=== PATIENT | female | born 1960 | race Caucasian/White ===

== ENCOUNTER 2017-12-15 05:58 | Emergency (ER) | payer SELFPAY ==
[~2017-12-15] VITALS: Ht 157.5 cm; Wt 120.0 kg
[2017-12-15] MEDS ORDERED: LISINOPRIL10 MG PO (06:45)
[2017-12-15] MEDS ORDERED: GABAPENTIN100 MG PO (06:45)
[2017-12-15] MEDS ORDERED: LEVOTHYROXIN50 MCG PO (06:46)
[2017-12-15] MEDS ORDERED: MOTRIN400 MG PO (06:47)
[2017-12-15 06:48] VITALS: BP 141/71
[2017-12-15] MEDS ORDERED: IBUPROFEN600 MG PO (06:56)
== END 2017-12-15 07:06 | disposition home or self-care (01) | DRG 605 ==
LOC: ED 05:58
DX: S40.012A Contusion of left shoulder, initial encounter (principal); M19.90 Unspecified osteoarthritis, unspecified site; F17.210 Nicotine dependence, cigarettes, uncomplicated; V53.6XXA Passenger in pick-up truck or van injured in collision with car, pick-up truck or van in traffic accident, initial encounter

== ENCOUNTER 2018-02-14 12:06 | Emergency (ER) | payer SELFPAY ==
[~2018-02-14] VITALS: Ht 157.5 cm; Wt 120.0 kg
[~2018-02-14 12:06] MED LIST: GABAPENTIN100 MG PO; IBUPROFEN600 MG PO; LEVOTHYROXIN50 MCG PO; LISINOPRIL10 MG PO; MOTRIN400 MG PO
[2018-02-14 13:06] LABS: HEMATOCRIT 43.8 % (37.0-47.0); HEMOGLOBIN 14.2 g/dl (12.0-16.0); IMMATURE GRANULOCYTES 0.3 % (0.0-5.0); MEAN CELL VOLUME 93.2 fL CALC (80.0-100.0); MEAN CORPUSCULAR HGB 30.2 pG CALC (26.0-32.0); MEAN CORPUSCULAR HGB CONC 32.4 g/L CALC (32.0-36.0); NEUT# 4.84 thou/uL (2.00-7.15); RED BLOOD COUNT 4.7 mill/uL (4.20-5.60); RED CELL DISTRI WIDTH 12.9 % (11.5-15.5)
[2018-02-14 13:06] LABS: URINE BILIRUBIN - DIPSTICK NEGATIVE (NEGATIVE); URINE BLOOD DIPSTICK SMALL (NEGATIVE); URINE COLOR YELLOW; URINE GLUCOSE - DIPSTICK NEGATIVE (NEGATIVE); URINE KETONE NEGATIVE (NEGATIVE); URINE NITRITE - DIPSTICK NEGATIVE (Negative); URINE PROTEIN - DIPSTICK NEGATIVE (NEG-TRACE); URINE UROBILINOGEN - DIPSTICK 0.2 E.U./dL (0.2)
[2018-02-14 13:35] LABS: ANION GAP 12 (6-22 (CALC)); BUN 8 mg/dL (7-17); BUN/CREATININE RATIO 11 (12-20 (CALC)); CARBON DIOXIDE 30 mmol/l (22-30); CHLORIDE 105 mmol/l (95-108); CREATININE 0.8 mg/dL (0.5-1.0); GFR > 60 ML/MIN (>=60 (CALC)); GFR FOR AFR.AMER. > 60 ML/MIN (>=60 (CALC)); POTASSIUM 4.6 mmol/l (3.5-5.1); SODIUM 143 mmol/l (137-146)
[2018-02-14 13:41] LABS: URINE CLARITY TURBID; URINE LEUK ESTERASE MODERATE (NEGATIVE)
[2018-02-14] MEDS ORDERED: CEPHALEXIN500 M1 PO (13:44)
[2018-02-14] MEDS ORDERED: VOLTAREN1%GEL TOP (13:44)
[2018-02-14] MEDS ORDERED: MOTRIN400 MG PO (13:44)
[2018-02-14 14:08] VITALS: BP 162/77
[2018-02-14 14:39] LABS: URINE BACTERIA FEW hpf; URINE SQUAMOUS EPITHELIAL CELL FEW EPI/hpf (0-FEW)
== END 2018-02-14 14:15 | disposition home or self-care (01) | DRG 392 ==
LOC: ED 12:06
PROVIDERS: Family Medicine
DX: R10.31 Right lower quadrant pain (principal); E27.9 Disorder of adrenal gland, unspecified; N39.0 Urinary tract infection, site not specified; I10 Essential (primary) hypertension; M19.90 Unspecified osteoarthritis, unspecified site; F17.210 Nicotine dependence, cigarettes, uncomplicated; Z87.442 Personal history of urinary calculi

== ENCOUNTER 2018-06-06 12:40 | Emergency (ER) | payer SELFPAY ==
[~2018-06-06] VITALS: Ht 157.5 cm; Wt 113.6 kg
[~2018-06-06 12:40] MED LIST changes: +CEPHALEXIN500 M1 PO; +VOLTAREN1%GEL TOP
[2018-06-06] MEDS ORDERED: BACTRIM DS1 TAB PO (13:09)
[2018-06-06 13:21] VITALS: BP 155/104
== END 2018-06-06 13:22 | disposition home or self-care (01) | DRG 607 ==
LOC: ED 12:40
DX: L72.9 Follicular cyst of the skin and subcutaneous tissue, unspecified (principal); I10 Essential (primary) hypertension; F17.210 Nicotine dependence, cigarettes, uncomplicated

== ENCOUNTER 2018-09-13 10:29 | Emergency (ER) | payer SELFPAY ==
[~2018-09-13] VITALS: Ht 157.5 cm; Wt 105.0 kg
[~2018-09-13 10:29] MED LIST changes: +BACTRIM DS1 TAB PO
[2018-09-13] MEDS ORDERED: CLEOCIN300 MG PO (11:43)
[2018-09-13] MEDS ORDERED: TRAMADOL HYDROC50 MG PO (11:43)
[2018-09-13] MEDS ORDERED: BACTROBAN TOP (11:43)
[2018-09-13] MEDS ORDERED: DIFLUCAN100 M1 PO (11:43)
[2018-09-13 11:50] VITALS: BP 122/82
== END 2018-09-13 11:50 | disposition home or self-care (01) | DRG 596 ==
LOC: ED 10:29
DX: B02.9 Zoster without complications (principal); L01.00 Impetigo, unspecified

== ENCOUNTER 2018-10-07 07:35 | Emergency (ER) | payer SELFPAY ==
[~2018-10-07] VITALS: Ht 157.5 cm; Wt 110.0 kg
[~2018-10-07 07:35] MED LIST changes: +BACTROBAN TOP; +CLEOCIN300 MG PO; +DIFLUCAN100 M1 PO; +TRAMADOL HYDROC50 MG PO
[2018-10-07 07:51] VITALS: BP 128/63
== END 2018-10-07 08:44 | disposition left against medical advice (07) | DRG 607 ==
LOC: ED 07:35
DX: R21 Rash and other nonspecific skin eruption (principal); Z91.19 Patient's noncompliance with other medical treatment and regimen

== ENCOUNTER 2019-05-15 12:35 | Emergency (ER) | payer SELFPAY ==
[~2019-05-15] VITALS: Ht 157.5 cm; Wt 105.0 kg
[2019-05-15 14:09] LABS: HEMATOCRIT 42.4 % (37.0-47.0); IMMATURE GRANULOCYTES 0.3 % (0.0-5.0); MEAN CELL VOLUME 87.8 fL CALC (80.0-100.0); MEAN CORPUSCULAR HGB 26.9 pG CALC (26.0-32.0); MEAN CORPUSCULAR HGB CONC 30.7 g/L CALC (32.0-36.0); NEUT# 6.06 thou/uL (2.00-7.15); RED BLOOD COUNT 4.83 mill/uL (4.20-5.60); RED CELL DISTRI WIDTH 15.9 % (11.5-15.5)
[2019-05-15 15:29] LABS: URINE BILIRUBIN - DIPSTICK NEGATIVE (NEGATIVE); URINE BLOOD DIPSTICK NEGATIVE (NEGATIVE); URINE COLOR YELLOW; URINE GLUCOSE - DIPSTICK NEGATIVE (NEGATIVE); URINE KETONE NEGATIVE (NEGATIVE); URINE LEUK ESTERASE TRACE (NEGATIVE); URINE NITRITE - DIPSTICK NEGATIVE (Negative); URINE PROTEIN - DIPSTICK NEGATIVE (NEG-TRACE); URINE SPECIFIC GRAVITY 1.015; URINE UROBILINOGEN - DIPSTICK 0.2 E.U./dL (0.2)
[2019-05-15] MEDS ORDERED: LISINOPRIL20 MG PO (15:59)
[2019-05-15] MEDS ORDERED: SYNTHROID100 MCG PO (15:59)
[2019-05-15 16:05] VITALS: BP 153/79
== END 2019-05-15 16:12 | disposition home or self-care (01) | DRG 866 ==
LOC: ED 12:35
PROVIDERS: Family Medicine
DX: B34.9 Viral infection, unspecified (principal); E03.9 Hypothyroidism, unspecified; I10 Essential (primary) hypertension; F17.210 Nicotine dependence, cigarettes, uncomplicated

== ENCOUNTER 2020-12-01 06:35 | Day surgery (SDC) | payer MEDICARE, MEDICAID ==
[~2020-12-01] VITALS: Ht 157.5 cm; Wt 112.5 kg
[~2020-12-01 06:35] MED LIST changes: +BL IBUPROFEN200 MG PO; +HYDROCHLOROTH12.5 M1 PO; +HYDROCO/APAP1 T10 PO; +HYDROCODONE BIT1 TA8 PO; +LISINOPRIL20 MG PO; +LOSARTAN POTAS100 MG PO; +LYRICA150 M1 PO; +NORCO1 TA2 PO; +SYNTHROID100 MCG PO
[2020-12-01 08:26] VITALS: BP 137/72
[2020-12-21] MEDS ORDERED: SERTRALINE25 MG PO (13:35)
[2020-12-21] MEDS ORDERED: ARIPIPRAZOLE5 MG PO (13:36)
[2020-12-21] MEDS ORDERED: MELATONIN PO (13:38)
[2020-12-21] MEDS ORDERED: GLUCOSAMINE PO (13:41)
[2020-12-21] MEDS ORDERED: HYDROCO/APAP1 T10 PO (14:02)
[2021-01-18] MEDS ORDERED: HYDROCO/APAP1 T10 PO (13:57)
== END 2020-12-01 08:10 | disposition home or self-care (01) ==
LOC: ORM 06:35
PROVIDERS: ATTEND Anesthesiology Pain Medicine
DX: M46.1 Sacroiliitis, not elsewhere classified (principal)

== ENCOUNTER 2021-02-09 06:28 | Day surgery (SDC) | payer MEDICARE, MEDICAID ==
[~2021-02-09] VITALS: Ht 157.5 cm; Wt 106.6 kg
[~2021-02-09 06:28] MED LIST changes: +ARIPIPRAZOLE5 MG PO; +GLUCOSAMINE PO; +MELATONIN PO; +SERTRALINE25 MG PO
[2021-02-09 08:31] VITALS: BP 108/70
== END 2021-02-09 08:38 | disposition home or self-care (01) ==
LOC: ORM 06:28
PROVIDERS: ATTEND Anesthesiology Pain Medicine
DX: M54.5 Low back pain (principal)

== ENCOUNTER 2021-07-20 07:29 | Day surgery (SDC) | payer MEDICARE, MEDICAID ==
[~2021-07-20] VITALS: Ht 157.5 cm; Wt 108.0 kg
[~2021-07-20 07:29] MED LIST changes: +MEDDOSEPAK PO; +TRAZODONE100 MG PO
[2021-07-20 09:37] VITALS: BP 148/89
== END 2021-07-20 10:10 | disposition home or self-care (01) ==
LOC: ORM 07:29
PROVIDERS: ATTEND Physical Medicine & Rehabilitation Pain Medicine
DX: M22.42 Chondromalacia patellae, left knee (principal); M25.462 Effusion, left knee; M17.12 Unilateral primary osteoarthritis, left knee; G89.29 Other chronic pain; M25.561 Pain in right knee
CPT/HCPCS: J3490; Q9967

== ENCOUNTER 2021-10-12 06:54 | Day surgery (SDC) | payer MEDICARE, MEDICAID ==
[~2021-10-12] VITALS: Ht 157.5 cm; Wt 96.2 kg
[2021-10-12 09:40] VITALS: BP 144/93
== END 2021-10-12 08:57 | disposition home or self-care (01) ==
LOC: ORM 06:54
PROVIDERS: ATTEND Physical Medicine & Rehabilitation Pain Medicine
DX: M47.816 Spondylosis without myelopathy or radiculopathy, lumbar region (principal); G89.4 Chronic pain syndrome; M25.561 Pain in right knee; M25.562 Pain in left knee

== ENCOUNTER 2021-10-20 12:40 | Emergency (ER) | payer MEDICARE, MEDICAID ==
[~2021-10-20] VITALS: Ht 157.5 cm; Wt 90.0 kg
[2021-10-20 13:15] LABS: HEMATOCRIT 41.5 % (37.0-47.0); IMMATURE GRANULOCYTES 0.3 % (0.0-5.0); MEAN CELL VOLUME 94.3 fL CALC (80.0-100.0); MEAN CORPUSCULAR HGB 29.5 pG CALC (26.0-32.0); MEAN CORPUSCULAR HGB CONC 31.3 g/dL CAL (32.0-36.0); NEUT# 6.25 thou/uL (2.00-7.15); RED BLOOD COUNT 4.4 mill/uL (4.20-5.60); RED CELL DISTRI WIDTH 14.3 % (11.5-15.5)
[2021-10-20] MEDS ORDERED: HYDROCHLOROT25 MG PO (13:25)
[2021-10-20 13:31] LABS: ALBUMIN 3.9 g/dL (3.2-5.0); BILIRUBIN, TOTAL 0.3 mg/dL (0.0-1.4); BUN 19 mg/dL (7-17); BUN/CREATININE RATIO 20 (12-20 (CALC)); CARBON DIOXIDE 34 mmol/l (22-30); CHLORIDE 99 mmol/l (95-108); CREATININE 0.9 mg/dL (0.5-1.0); GFR > 60 ML/MIN (>=60 (CALC)); GFR FOR AFR.AMER. > 60 ML/MIN (>=60 (CALC)); SGOT/AST 30 u/l (14-36); SODIUM 139 mmol/l (137-146); TOTAL PROTEIN 6.8 g/dL (6.3-8.2)
[2021-10-20 13:32] LABS: ALKALINE PHOSPHATASE 105 u/l (38-126); ANION GAP 10 (6-22 (CALC)); POTASSIUM 4.3 mmol/l (3.5-5.1)
[2021-10-20 15:27] LABS: URINE BILIRUBIN - DIPSTICK NEGATIVE (NEGATIVE); URINE BLOOD DIPSTICK TRACE-INTACT (NEGATIVE); URINE COLOR YELLOW; URINE GLUCOSE - DIPSTICK NEGATIVE (NEGATIVE); URINE KETONE NEGATIVE (NEGATIVE); URINE PROTEIN - DIPSTICK NEGATIVE (NEG-TRACE); URINE UROBILINOGEN - DIPSTICK 0.2 E.U./dL (0.2)
[2021-10-20 15:38] LABS: URINE LEUK ESTERASE SMALL (NEGATIVE); URINE NITRITE - DIPSTICK NEGATIVE (Negative)
[2021-10-20 15:44] LABS: URINE SQUAMOUS EPITHELIAL CELL FEW EPI/hpf (0-FEW)
[2021-10-20] MEDS ORDERED: MECLIZINE25 MG PO (15:57)
[2021-10-20 16:25] VITALS: BP 147/93
== END 2021-10-20 16:25 | disposition home or self-care (01) ==
LOC: ED 12:40
PROVIDERS: Family Medicine
DX: R42 Dizziness and giddiness (principal); I10 Essential (primary) hypertension; F32.A Depression, unspecified; F41.9 Anxiety disorder, unspecified; F17.200 Nicotine dependence, unspecified, uncomplicated

== ENCOUNTER 2021-11-23 08:11 | Day surgery (SDC) | payer MEDICARE, MEDICAID ==
[~2021-11-23] VITALS: Ht 157.5 cm; Wt 91.6 kg
[~2021-11-23 08:11] MED LIST changes: +HYDROCHLOROT25 MG PO; +MECLIZINE25 MG PO
[2021-11-23 09:47] VITALS: BP 137/99
== END 2021-11-23 09:22 | disposition home or self-care (01) ==
LOC: ORM 08:11
PROVIDERS: ATTEND Physical Medicine & Rehabilitation
DX: M47.816 Spondylosis without myelopathy or radiculopathy, lumbar region (principal); G89.4 Chronic pain syndrome; M25.561 Pain in right knee; M25.562 Pain in left knee

== ENCOUNTER 2022-01-25 07:09 | Day surgery (SDC) | payer MEDICARE, MEDICAID ==
[~2022-01-25] VITALS: Ht 157.5 cm; Wt 916.3 kg
[2022-01-25 09:03] VITALS: BP 117/78
== END 2022-01-25 09:15 | disposition home or self-care (01) ==
LOC: ORM 07:09
PROVIDERS: ATTEND Physical Medicine & Rehabilitation
DX: M47.816 Spondylosis without myelopathy or radiculopathy, lumbar region (principal)

== ENCOUNTER 2023-01-17 08:42 | Day surgery (SDC) | payer MEDICARE, MEDICAID ==
[~2023-01-17] VITALS: Ht 157.5 cm; Wt 96.6 kg
[2023-01-17 10:59] VITALS: BP 130/88
== END 2023-01-17 11:20 | disposition home or self-care (01) ==
LOC: ORM 08:42
PROVIDERS: ATTEND Physical Medicine & Rehabilitation
DX: M47.816 Spondylosis without myelopathy or radiculopathy, lumbar region (principal); G89.4 Chronic pain syndrome; M25.561 Pain in right knee; M25.562 Pain in left knee

== ENCOUNTER 2024-03-15 15:17 | Emergency (ER) | payer MEDICARE, MEDICAID ==
[~2024-03-15] VITALS: Ht 157.5 cm; Wt 100.0 kg
[2024-03-15 15:44] VITALS: BP 109/73
[2024-03-15] MEDS ORDERED: AMOXICILLIN875 MG PO (16:01)
[2024-03-15 16:30] VITALS: BP 109/73
== END 2024-03-15 16:20 | disposition home or self-care (01) ==
LOC: ED 15:17
DX: H66.93 Otitis media, unspecified, bilateral (principal); I10 Essential (primary) hypertension; F41.9 Anxiety disorder, unspecified; F32.A Depression, unspecified; F17.200 Nicotine dependence, unspecified, uncomplicated